=== PATIENT | female | born 1955 | race Two or more races ===

== ENCOUNTER → 2024-10-23 | Outpatient (CLI) | payer OTHER, SELFPAY ==
--- NOTE | 2024-10-23 11:00 | XR_ITS ---
Examination: Breast ultrasound, unilateral, right complete Date and time of exam: October 23, 2024 1104 hours INDICATIONS: Mammogram April 20, 2024 benign findings Right breast sonogram April 20, 2024 12:00 oval mass circumscribed 7 x 7 mm Technique: Real-time sawyer scale ultrasonographic imaging performed right breast including all 4 quadrants as well as nipple retroareolar and axillary region. Findings: 12:00 oval mass circumscribed 7 x 5 mm 7:00 cyst 5 x 4 mm 9:00 cyst 5 x 4 mm IMPRESSION: BI-RADS Category 2: Benign findings
--- NOTE | 2024-10-23 11:30 | XR_ITS ---
Examination: Diagnostic digital mammography, unilateral, right Computer aided detection 3-D breast Tomosynthesis, unilateral Date and time of exam: October 23, 2024 1115 hours INDICATIONS: Mammogram March 09, 2024 12 mm focal asymmetry upper right breast MLO view Technique: Nonmagnified MLO, CC views of the right breast have been obtained, reconstructed from 3-D Tomosynthesis images. R2 computer aided detection program utilized for evaluation of suspicious masses and/or abnormal calcifications. 3-D Tomosynthesis images obtained. Findings: The breast is heterogeneously dense, which may obscure small masses No suspicious masses noted Impression: BI-RADS category 2: Benign findings Recommend yearly follow-up mammography
== END | disposition home or self-care (01) ==
LOC: CDIM 10:50
PROVIDERS: PCP Internal Medicine; Referring Provider Internal Medicine; Visit Provider Internal Medicine
DX: R92.321 Mammographic fibroglandular density, right breast (principal); N60.01 Solitary cyst of right breast
CPT/HCPCS: 76641; 77061; 77065; G0279

== ENCOUNTER → 2024-11-13 | Outpatient (CLI) | payer OTHER, SELFPAY ==
[2024-11-13 15:49] LABS: Basophils % (Auto) 0 % (0-2.5); Eosinophils # (Auto) 0.1 Thou/mm3 (0.0-0.5); Eosinophils % (Auto) 1 % (0-10); Hemoglobin 13.8 g/dL (12.0-16.0); Immature Granulocytes % (Auto) 0 % (0-0); Immature Granulocytes Auto 0.03 Thou/mm3 (0.00-0.00); Lymphocytes # (Auto) 2.9 Thou/mm3 (1.0-4.8); Lymphocytes % (Auto) 32 % (10-50); Mean Corpuscular HGB Conc 34.5 g/dl (31.0-37.0); Mean Corpuscular Hemoglobin 30.5 pg (25.0-35.0); Mean Corpuscular Volume 89 fL (80-100); Monocytes # (Auto) 0.6 Thou/mm3 (0.0-0.8); Monocytes % (Auto) 6 % (0-12); Neutrophils # (Auto) 5.4 Thou/mm3 (1.8-7.7); Neutrophils % (Auto) 60 % (37-80); Nucleated Red Blood Cell % 0 /100 WBC (0); Platelet Count 289 Thou/mm3 (140-440); RDW Standard Deviation 44.2 fL (36.4-46.3); Red Blood Count 4.52 Miln/mm3 (4.00-5.20); White Blood Count 9.1 Thou/mm3 (3.6-11.0)
[2024-11-13 16:04] LABS: Glucose Estimated Average 148 mg/dL (80-131); Hemoglobin A1C 6.8 % Hgb (4.8-6.0)
[2024-11-13 16:22] LABS: Creatinine MALB Rnd Ur 79 mg/dL (30-125); Microalbumin Creat Ratio 66 mg/gCrea (<30); Microalbumin, Random Urine 52 mg/L (0-300)
[2024-11-13 16:22] LABS: Alanine Aminotransferase 38 U/L (10-49); Albumin, Serum 4.4 gm/dL (3.4-4.8); Albumin/Globulin Ratio 1.6 (1.2-2.2); Alkaline Phosphatase 80 U/L (46-116); Anion Gap 6 (7-16); Aspartate Amino Transferase 68 U/L (0-34); BUN/Creatinine Ratio 12 Ratio (12-20); Bilirubin,Total 1.2 mg/dL (0.3-1.2); Blood Urea Nitrogen 16 mg/dL (9-23); Calcium 9.4 mg/dL (8.3-10.6); Calcium (Corrected) 9.4 mg/dL (8.5-10.1); Carbon Dioxide 29.8 mMol/L (20.0-31.0); Cardiac Risk Estimate 4.1 RATIO (3.7-5.6); Chloride 104 mMol/L (98-107); Cholesterol 289 mg/dL (132-200); Creatinine (Component) 1.3 mg/dL (0.6-1.3); Free T4 (Free Thyroxine) 0.16 ng/dL (0.89-1.76); Globulin 2.7 gm/dL (2.3-3.5); Glucose 104 mg/dL (74-106); HDL Cholesterol 71 mg/dL (40-60); LDL Cholesterol,Calculated 181 mg/dL (0-130); Osmolality,Calculated 280 (275-295); Potassium 4.2 mMol/L (3.4-5.1); Sodium 140 mMol/L (136-145); Thyroid Stimulating Hormone > 150.00 uIU/mL (0.55-4.78); Total Protein 7.1 gm/dL (5.7-8.2); Triglycerides 183 mg/dL (30-150); eGFR 45 See Note
== END | disposition home or self-care (01) ==
LOC: COPL 14:12
PROVIDERS: PCP Internal Medicine; Referring Provider Internal Medicine; Visit Provider Internal Medicine
DX: E03.9 Hypothyroidism, unspecified (principal); E11.65 Type 2 diabetes mellitus with hyperglycemia; E78.5 Hyperlipidemia, unspecified; I10 Essential (primary) hypertension
CPT/HCPCS: 36415; 80053; 80061; 82043; 82570; 83036; 84439; 84443; 85025

== ENCOUNTER → 2025-04-20 | Outpatient (CLI) | payer OTHER, SELFPAY ==
[2025-04-20 08:11] LABS: Collection Type, Urine Clean Catch
[2025-04-20 08:54] LABS: Basophils # (Auto) 0.0 Thou/mm3 (0.0-0.2); Basophils % (Auto) 1 % (0-2.5); Eosinophils # (Auto) 0.1 Thou/mm3 (0.0-0.5); Eosinophils % (Auto) 1 % (0-10); Hematocrit 38.6 % (36.0-46.0); Hemoglobin 13.1 g/dL (12.0-16.0); Immature Granulocytes Auto 0.04 Thou/mm3 (0.00-0.00); Lymphocytes # (Auto) 2.2 Thou/mm3 (1.0-4.8); Lymphocytes % (Auto) 28 % (10-50); Mean Corpuscular HGB Conc 33.9 g/dl (31.0-37.0); Mean Corpuscular Hemoglobin 31.3 pg (25.0-35.0); Mean Corpuscular Volume 92 fL (80-100); Monocytes # (Auto) 0.5 Thou/mm3 (0.0-0.8); Monocytes % (Auto) 7 % (0-12); Neutrophils # (Auto) 4.9 Thou/mm3 (1.8-7.7); Neutrophils % (Auto) 63 % (37-80); Nucleated Red Blood Cell # 0.00 Thou/mm3 (0.00-0.00); Nucleated Red Blood Cell % 0 /100 WBC (0); Platelet Count 248 Thou/mm3 (140-440); RDW Standard Deviation 45.8 fL (36.4-46.3); Red Blood Count 4.19 Miln/mm3 (4.00-5.20); White Blood Count 7.8 Thou/mm3 (3.6-11.0)
[2025-04-20 08:58] LABS: Bilirubin,Urine Negative (Negative); Blood,Urine Negative (Negative); Clarity,Urine Clear (Clear/Hazy); Color,Urine Lt-Yellow (Lt Yel-Yel); Glucose, Urine 3+ (Negative); Hyaline Casts,Urine < 1 /hpf (0-1); Ketones,Urine Negative (Negative); Leukocyte Esterase,Urine Positive (Negative); Nitrite,Urine Negative (Negative); PH,Urine 7.0 (5.0-7.0); Protein,Urine Trace (Neg - Trace); RBC,Urine 2 /hpf (0-3); Specific Gravity,Urine 1.025 (1.001-1.035); Squamous Epithelial Cell,Urine 3 /hpf (0-5); Urobilinogen,Urine Negative mg/dL (0.0-1.0); WBC,Urine 6 /hpf (0-5)
[2025-04-20 08:59] LABS: Creatinine,Random Urine 143 mg/dL (30-125); Protein Total, Random Urine 39 mg/dL (1-14)
[2025-04-20 09:03] LABS: Albumin, Serum 4.7 gm/dL (3.4-4.8); Anion Gap 8 (7-16); BUN/Creatinine Ratio 13 Ratio (12-20); Blood Urea Nitrogen 16 mg/dL (9-23); Calcium 9.6 mg/dL (8.3-10.6); Calcium (Corrected) 9.6 mg/dL (8.5-10.1); Carbon Dioxide 28.9 mMol/L (20.0-31.0); Chloride 103 mMol/L (98-107); Creatinine (Component) 1.2 mg/dL (0.6-1.3); Glucose 279 mg/dL (74-106); Osmolality,Calculated 290 (275-295); Phosphorous 2.6 mg/dL (2.4-5.1); Potassium 4.7 mMol/L (3.4-5.1); Sodium 140 mMol/L (136-145); eGFR 49 See Note
[2025-04-20 09:22] LABS: Vitamin D 25 Hydroxy Total 9.7 ng/mL (7.3-40.2)
[2025-04-21 16:01] LABS: Vitamin B12 293 pg/mL (211-911)
== END | disposition home or self-care (01) ==
LOC: COPL 07:42
PROVIDERS: PCP Internal Medicine; Referring Provider Internal Medicine; Visit Provider Internal Medicine
DX: E11.22 Type 2 diabetes mellitus with diabetic chronic kidney disease (principal); N18.31 Chronic kidney disease, stage 3a
CPT/HCPCS: 36415; 80069; 81001; 82306; 82570; 82607; 84156; 85025

== ENCOUNTER 2025-07-13 14:42 | Emergency (ER) | payer OTHER, SELFPAY ==
[2025-07-13 15:16] VITALS: BP 200/76; BP 202/82; PULSE 56; RESP 20; TEMP 36.6; O2SAT 95; BMI 35.1
--- NOTE | 2025-07-13 15:21 | XR_ITS ---
Examination: CT soft tissue neck, with intravenous contrast. 2-D coronal reconstructions. 2-D sagittal reconstructions. Date and time of exam : July 13, 2025 2145 hours INDICATIONS: Head pain sore throat this week. CTDI: vol (mGy): 14.2 DLP: (mGycm): 382 Technique: 1.25 mm axial sections of the neck of the obtained. Coronal and sagittal reconstructions have been obtained. Intravenous contrast administered 60 cc Isovue-370. Low dose protocols were performed. One or more of the following dose reduction techniques were used; automated exposure control, adjustment of the mA and/or KV according to patient size, use of iterative reconstruction technique. Findings: Symmetrical nasopharynx oropharynx Soft tissue tonsillar hypertrophy but no tonsillar abscess Symmetrical submandibular glands parotid glands The larynx appears normal No thyroid tissue noted No pathologic cervical lymphadenopathy Normal epiglottis Prevertebral soft tissue is mildly , 18 mm at the C6-C7 level IMPRESSION: No tonsillar abscess Prevertebral soft tissue is prominent, 18 mm at the C6-C7 level, clinical correlation advised As clinically warranted, MRI cervical spine soft tissue neck post contrast follow-up would best assess for anterior prevertebral soft tissue infection is clinically warranted
--- NOTE | 2025-07-13 15:21 | XR_ITS ---
US thyroid 07/13/2025 3:30 PM COMPARISON: None CLINICAL HISTORY: pain and swelling to neck today COMPARISON: None TECHNIQUE: Transverse and longitudinal sonographic images were obtained. Doppler assessment was performed as appropriate. FINDINGS: No thyroid tissue is identified. No cervical lymphadenopathy or other abnormal soft tissue changes on the provided images. No abnormal fluid collections. IMPRESSION: Absent thyroid. No evidence for cervical lymphadenopathy or other abnormal soft tissue changes.
--- NOTE | 2025-07-13 15:22 | EDRME_ITS ---
Rapid Medical Screening Exam [facility] Arrival date/time: 07/13/25 14:42 69-year-old female presents to the emergency department today for complaints of throat swelling, neck swelling ongoing x 2 months Chief Complaint: Headache Vital signs: Vital Signs Temperature 97.9 F 07/13/25 15:16 Pulse Rate 56 L 07/13/25 15:16 Respiratory Rate 20 07/13/25 15:16 Blood Pressure 200/76 H 07/13/25 15:16 Pulse Oximetry (%) 95 07/13/25 15:16 Oxygen Delivery Method Room Air 07/13/25 15:16 Exam: On exam patient is mild swelling of her neck no difficulty breathing or swallowing Clinical Impression: Lab work and imaging ordered
--- NOTE | 2025-07-13 15:29 | EKG_ITS ---
[facility] Test Date: 2025-07-13 Pat Name: KAYLEE GARCIA Department: Room: - Gender: Female Education Diagnostician: : 1955 Requested By: Shaila Castellanos Order Number: [id number] Reading MD: Shaila Castellanos Measurements Intervals [place] Rate: 52 P: 36 ID: [id number] QRS: -20 QRSD: 97 T: -70 QT: 425 QTc: 398 Interpretive Statements SINUS BRADYCARDIA LOW QRS VOLTAGE IN PRECORDIAL LEADS [QRS DEFLECTION < 1.0 mV IN CHEST LEADS] POSSIBLE ANTERIOR MYOCARDIAL INFARCTION , OF INDETERMINATE AGE [30 ms Q WAVE IN V3/V4, OR R < 0.2 mV IN V4] No previous ECG available for comparison /store/S0/[id number]/ecg/[id number].pdf
--- NOTE | 2025-07-13 15:30 | EDNOTE_ITS ---
<Statement entered by Micheline Miller MD - 07/14/25 16:14> I, Micheline Miller MD, have reviewed the history, exam, and assessment of the patient. I have evaluated the patient independently and agree with the plan of care documented by [ ]. All diagnostic studies were reviewed and discussed. I confirm the diagnosis as documented by the Resident. I was present during the Medical Decision Making for this patient. The patient's plan of care was created between myself and the Resident and consistent with our discussion of the patient's case. ED Headache RME/HPI General Chief Complaint: Headache Stated Complaint: SHARP HEAD PAIN, SWOLLEN LYMPH NODES, SORE THROAT Arrival date/time: 07/13/25 14:42 RME / HPI RME / HPI Narrative: 07/13/25 14:42 Patient is a 69-year-old female with a past medical history of hypertension, diabetes mellitus type 2 [id number], history of hypothyroidism who presented to the emergency room via private vehicle with a chief complaint of sharp headache and concern for sore throat. Per chart review patient has a past medical history of dysphagia dating back since 2018 with previous EGD noted for esophageal ring status post dilation. Past medical history of smoking quit in 2008. CBC CMP TSH thyroid US Exam: On exam patient is mild swelling of her neck no difficulty breathing or s wallowing Impression: Lab work and imaging ordered Related Data Home Medications ?Medication ?Instructions ?Recorded ?Confirmed lisinopril 10 mg tablet 20 mg PO QDAY #0 tabs 12/16/18 loratadine 10 mg tablet (Claritin) 10 mg PO QDAY #0 ta bs 01/10/16 12/16/18 metformin 1,000 mg tablet 1,000 mg PO BID #0 tabs 050 11/2212/16/18 (Glucophage) levothyroxine 200 mcg tablet 200 mcg PO QDAY 05/22/18 12/16/18 saxagliptin 5 mg tablet (Onglyza) 5 mg PO QDAY 8 12/16/18 Previous Rx's ?Medication ?Instructions ?Recorded omeprazole 20 mg capsule,delayed 20 mg PO QDAY ##30 release Allergies Allergy/AdvReac Type Severity Reaction Status Date / Time Penicillins Allergy Mild Hives Verified 07/13/25 14:46 Review of Systems Review of Systems Narrative Review of Systems: General appearance: NO weight change, NO fatigue, NO weakness, NO fever, NO chills, NO night sweats, No cough Skin: NO rash, NO itching, NO sores, NO moles HEENT: Yes Headache NO Trauma, NO nausea, NO vomiting, NO visual changes, NO blurry vision, NO double vision, NO tinnitus, NO vertigo, NO ear discharge, NO rhinorrhea, NO stuffiness, NO sneezing, NO allergy, NO epistaxis. NO Hoarseness, YES sore throat, Yes swollen neck. Cardiac: NO Palpitations, NO dyspnea on exertion, NO orthopnea, NO paroxysmal nocturnal dyspnea, NO edema Respiratory: NO Shortness of Breath, NO Wheezing, NO Cough, NO Sputum, NO hemoptysis GI:NO appetite, NO nausea, NO vomiting, NO dysphagia, NO changes in bowel frequency, NO stool color, NO diarrhea, NO constipation, NO hemetemesis, NO hemorrhoids, NO melena, NO hematechezia, NO abdominal pain, NO jaundice Renal: NO frequency, NO hesitancy, NO urgency, NO hematuria, NO nocturia, NO incontinence MSK: NO muscle weakness, NO gout, NO arthritis, NO muscle stiffness Neuro: NO headaches, NO tremors, NO weakness, NO paralysis, NO seizures, NO loss of consciousness, NO numbness. Hem: NO anemia, NO easy bruising/bleeding, NO petechiae, NO purpura Endo: NO heat/cold intolerance, NO excessive sweating, NO polyuria, NO polydipsia, NO polyphagia, Yes thyroid problems, NO diabetes Pysch: NO mood, NO anxiety, NO depression ED Exam Narrative Physical exam: General Appearance: Alert & Oriented X3, well-nourished female who is lying in bed in no acute distress HEENT: Skull symmetrical and atraumatic. Conjunctivae pink and moist. Pupils equal, round, reactive to light and accommodation (PERRL). External ear without lesion or discharge. Straight, nares patient, mucosa pink, no discharge. Mild cervical lymph nodes Cardio: Normal Rate and Rhythm with S1 and S2 heart sounds. No murmurs or extra heart sounds auscultated. No bruits on carotid auscultation. No peripheral edema or cyanosis. Lungs: Symmetric with good expansion. Chest and back non-tender. Breath sounds vesicular without crackles, wheezing or rhonchi Abdomen: Non-tender, Non-distended, Normal Reactive Bowel Sounds Neuro: Alert, cooperative, oriented to person, place, and time. Speech clear. CN grossly intact. Upper motor strength 5/5 and Lower motor strength 5/5. Sensation intact. Course Quality Measures none Orders Category Date Time Status CT Screening NOW Care 07/13/25 15:21 Active Insert IV NOW Care 07/13/25 15:[address] soft tissue neck w con Stat Exams 07/13/25 15:21 Ordered US thyroid Stat Exams 07/13/25 15:21 Completed CBC Stat Lab 07/13/25 16:10 Completed CMP [Comprehensive Metabolic Panel] Stat Lab 07/13/25 16:10 Completed Free T4 (Free Thyroxine) Stat Lab 07/13/25 16:10 Completed TSH [Thyroid Stimulating Hormone] Stat Lab 07/13/25 16:10 Completed cloNIDine HCL [Catapres] Med 07/13/25 15:29 Discontinued 0.2 mg PO X1 ONE EKG (RT) Stat RT 07/13/25 15:29 Draft Vital Signs Vital signs: Vital Signs Temperature 97.9 F 07/13/25 15:16 Pulse Rate 56 L 07/13/25 15:16 Respiratory Rate 20 07/13/25 15:16 Blood Pressure 200/76 H 07/13/25 15:16 Pulse Oximetry (%) 95 07/13/25 15:16 Oxygen Delivery Method Room Air 07/13/25 15:16 Headache Patient data External records reviewed:: [facility] previous records Clinical information provided by:: patient Social determinants that could affect healthcare access:: none Patient has the following chronic illnesses:: HTN and hypothyroidism How is presenting disease/condition affected by chronic disease/condition?: exacerbated by (HTN) Evaluation data The following diagnostics were reviewed and interpreted by me:: lab results, radiology exam(s) and EKG tracing(s) Lab and/or radiology exams considered but not ordered:: none Interpretation Summary: Uncontrolled HTN and hypothyroidism Medications / Prescriptions Medications or Prescriptions considered but not ordered:: none Medication administrations:: Medication Administration History Discontinued Medications Clonidine (Clonidine Hcl 0.1 Mg Tablet) 0.2 mg PO X1 ONE Stop: 07/13/25 15:30 Last Admin: 07/13/25 16:24 Dose: 0.2 mg Documented By: same as above Consultations Consultation(s) initiated? (list below): No Diagnosis Differential diagnosis headache: tension headache, headache and other (uncontrolled htn ) Most likely diagnosis given after review of the tests above:: Uncontrolled hypertension as cbc, no leukocytosis noted, CMP elevation in Cr but no MARK noted. TSH elevated and T4 low Admission Indicated Admission indicated?: not indicated Admission Request Was there a request for admission?: No Disposition Plan Disposition Plan: other (specify) (patient signed off to night team ) Discharge Plan Plan Patient Disposition: HOME (Self Care) Prescriptions/Referrals Prescriptions/Med Rec: No Action metformin [Glucophage] 1,000 MG tablet 1,000 mg PO BID Qty: 0 lisinopril 10 MG tablet 20 mg PO QDAY Qty: 0 loratadine [Claritin] 10 MG tablet 10 mg PO QDAY Qty: 0 omeprazole 20 MG capsule,delayed release(DR/EC) 20 mg PO QDAY Qty: 30 0RF levothyroxine 200 mcg Tablet 200 mcg PO QDAY Onglyza 5 mg Tablet 5 mg PO QDAY Referrals: Amairani Johnson PA-C [Primary Care Provider] - In 1 week Problem List Clinical Impression: Headache, Hypertension, uncontrolled Patient/Caregiver Discharge Instructions Print Language: Fijian Stand Alone Forms: [facility] Award Info., Patient Portal Info Letter
[2025-07-13 16:21] LABS: Basophils # (Auto) 0.1 Thou/mm3 (0.0-0.2); Basophils % (Auto) 1 % (0-2.5); Eosinophils # (Auto) 0.1 Thou/mm3 (0.0-0.5); Eosinophils % (Auto) 1 % (0-10); Hematocrit 39.1 % (36.0-46.0); Hemoglobin 13.3 g/dL (12.0-16.0); Immature Granulocytes Auto 0.03 Thou/mm3 (0.00-0.00); Lymphocytes # (Auto) 2.4 Thou/mm3 (1.0-4.8); Lymphocytes % (Auto) 33 % (10-50); Mean Corpuscular HGB Conc 34.0 g/dl (31.0-37.0); Mean Corpuscular Hemoglobin 30.7 pg (25.0-35.0); Mean Corpuscular Volume 90 fL (80-100); Monocytes # (Auto) 0.4 Thou/mm3 (0.0-0.8); Monocytes % (Auto) 6 % (0-12); Neutrophils # (Auto) 4.1 Thou/mm3 (1.8-7.7); Neutrophils % (Auto) 58 % (37-80); Nucleated Red Blood Cell # 0.00 Thou/mm3 (0.00-0.00); Nucleated Red Blood Cell % 0 /100 WBC (0); Platelet Count 263 Thou/mm3 (140-440); RDW Standard Deviation 41.1 fL (36.4-46.3); Red Blood Count 4.33 Miln/mm3 (4.00-5.20); White Blood Count 7.0 Thou/mm3 (3.6-11.0)
[2025-07-13 16:24] VITALS: BP 200/76; PULSE 56
[2025-07-13 16:47] LABS: Alanine Aminotransferase 23 U/L (10-49); Albumin, Serum 4.7 gm/dL (3.4-4.8); Albumin/Globulin Ratio 2.0 (1.2-2.2); Alkaline Phosphatase 78 U/L (46-116); Anion Gap 9 (7-16); Aspartate Amino Transferase 30 U/L (0-34); BUN/Creatinine Ratio 9 Ratio (12-20); Bilirubin,Total 0.7 mg/dL (0.3-1.2); Blood Urea Nitrogen 13 mg/dL (9-23); Calcium 9.3 mg/dL (8.3-10.6); Calcium (Corrected) 9.3 mg/dL (8.5-10.1); Carbon Dioxide 29.7 mMol/L (20.0-31.0); Chloride 101 mMol/L (98-107); Creatinine (Component) 1.4 mg/dL (0.6-1.3); Estimated Creatinine Clearance 39.8 mL/min (>60); Free T4 (Free Thyroxine) 0.20 ng/dL (0.89-1.76); Globulin 2.4 gm/dL (2.3-3.5); Glucose 343 mg/dL (74-106); Osmolality,Calculated 293 (275-295); Potassium 4.1 mMol/L (3.4-5.1); Sodium 140 mMol/L (136-145); Thyroid Stimulating Hormone 139.82 uIU/mL (0.55-4.78); Total Protein 7.1 gm/dL (5.7-8.2); eGFR 40 See Note
--- NOTE | 2025-07-13 18:39 | PD.EDADDENDU ---
Emergency Room Addendum <Fabienne Lawson - Last Filed: 07/13/25 18:39> Addendum Narrative: 1800: Care assumed from Dr. Castellanos, attending Dr. Miller. Past medical, surgical, social and family history reviewed. Vitals and home medications reviewed. Results and treatment plan discussed. I will assume the care of the patient at this time and will follow the patient. Please refer to the emergency department record for history and examination from initial visit. <Rajeev Lucas DO - Last Filed: 07/13/25 22:02> Addendum Narrative: 1800: Care assumed from Dr. Castellanos, attending Dr. Miller. Past medical, surgical, social and family history reviewed. Vitals and home medications reviewed. Results and treatment plan discussed. I will assume the care of the patient at this time and will follow the patient. Please refer to the emergency department record for history and examination from initial visit. I reviewed the patient's workup. Blood pressures come down spontaneously. Patient has been on levothyroxine 200 mcg each day in the past but has not taken it for a number of months due to medical noncompliance. TSH is markedly elevated. I will start her back on her levothyroxine at her normal dose of 200 mcg/day. She does have primary care follow-up. She is to return to the emergency room as needed or if condition worsens.
[2025-07-13 22:45] VITALS: BP 163/81; PULSE 50; RESP 16; TEMP 36.4; O2SAT 96
== END 2025-07-13 22:46 | disposition home or self-care (01) ==
PROVIDERS: Nurse Practitioner Primary Care; Emergency Provider Emergency Medicine; PCP Physician Assistant
DX: R15.9 Full incontinence of feces (principal); I10 Essential (primary) hypertension; E03.9 Hypothyroidism, unspecified
CPT/HCPCS: 36415; 70491; 76536; 80053; 84439; 84443; 85025; 93005; 99284; A4649; Q9967; A9270

== ENCOUNTER → 2025-07-21 | Outpatient (CLI) | payer OTHER, SELFPAY ==
--- NOTE | 2025-07-21 09:31 | XR_ITS ---
Examination: Hand, right 3 views Technique: Hand AP, oblique, lateral 3 views Date and time of exam: July 21, 2025, 0937 hours INDICATIONS: Right third digit pain 1 year. FINDINGS: Moderate extra-articular bone demineralization Soft tissue vascular calcification Moderate osteoarthritis first carpometacarpal joint No acute fracture Mild to moderate osteoarthritis distal interphalangeal joint second through fifth digits and interphalangeal joint first digit No cortical bone destruction IMPRESSION: Osteoarthritis as above
[2025-07-21 11:14] LABS: Albumin, Serum 4.7 gm/dL (3.4-4.8); Anion Gap 8 (7-16); BUN/Creatinine Ratio 10 Ratio (12-20); Blood Urea Nitrogen 12 mg/dL (9-23); Calcium 9.0 mg/dL (8.3-10.6); Calcium (Corrected) 9.0 mg/dL (8.5-10.1); Carbon Dioxide 31.9 mMol/L (20.0-31.0); Chloride 103 mMol/L (98-107); Creatinine (Component) 1.2 mg/dL (0.6-1.3); Glucose 277 mg/dL (74-106); Osmolality,Calculated 294 (275-295); Phosphorous 2.7 mg/dL (2.4-5.1); Potassium 4.1 mMol/L (3.4-5.1); Sodium 143 mMol/L (136-145); eGFR 49 See Note
== END | disposition home or self-care (01) ==
PROVIDERS: PCP Internal Medicine; Referring Provider Internal Medicine; Visit Provider Nurse Practitioner Gerontology
DX: M18.11 Unilateral primary osteoarthritis of first carpometacarpal joint, right hand (principal); M19.041 Primary osteoarthritis, right hand; N18.31 Chronic kidney disease, stage 3a; E11.9 Type 2 diabetes mellitus without complications; I10 Essential (primary) hypertension
CPT/HCPCS: 36415; 73130; 80069